=== PATIENT | female | born 1955 | race Caucasian/White ===

== ENCOUNTER 2020-07-20 16:19 | Outpatient (CLI) | payer MEDICARE, SELFPAY ==
--- NOTE | ~2020-07-20 | MM_ITS ---
EXAMINATION: MM screening prosper BI w betsy HISTORY: Screening TECHNIQUE: Craniocaudal and mediolateral oblique 3-D tomosynthesis images were obtained and synthetic 2-D images were generated. CAD analysis was submitted and interpreted. COMPARISON: Comparison to multiple prior studies sequentially, with oldest reviewed study dated 06/11. BREAST PARENCHYMAL COMPOSITION: The breasts are heterogenously dense, which may obscure small masses. FINDINGS: There is no evidence of suspicious mass, calcification, or architectural distortion to sugg est malignancy in either breast. There has been no suspicious interval change. IMPRESSION: 1. No mammographic evidence of malignancy. 2. Recommend routine screening mammography in one year. BI-RADS Category 1: Negative Reviewed, dictated and finalized at location A.
== END 2020-07-20 16:20 | disposition home or self-care (01) ==
LOC: ANHIMG 16:20
PROVIDERS: PCP Internal Medicine; Visit Provider Obstetrics & Gynecology
DX: Z12.31 Encounter for screening mammogram for malignant neoplasm of breast (principal)
CPT/HCPCS: 77063; 77067

== ENCOUNTER 2020-07-21 08:53 | Outpatient (CLI) | payer MEDICARE, SELFPAY ==
--- NOTE | ~2020-07-21 | CT_ITS ---
EXAMINATION: CT abdomen w con DATE: 07/21/2020 09:33 INDICATION: Pancreatic cancer TECHNIQUE: Computed tomography (CT) of the abdomen was performed with 100 mL Omnipaque-350 intravenou s contrast. Automated exposure control and iterative reconstruction technique were employed. The dose -length product was 187.38 mGy-cm. COMPARISON: None FINDINGS: Minimal discoid atelectasis at the left lower lobe. Heart size is normal. No pericardial or pleural e ffusion. There are multiple small low-attenuation lesions scattered throughout the liver with sharply defined margins and with Hounsfield units <20 consistent with hepatic cysts. Gallbladder, spleen, bi lateral adrenal glands and kidneys are normal. Pancreas appears normal with no definitive masses with no ductal dilation or atrophy. Visualized bowels are unremarkable. No pathologically enlarged abdomi nal lymphadenopathy. Moderate to severe lower lumbar spondylosis. IMPRESSION: 1. Multiple hepatic cysts. Liver and pancreas are otherwise unremarkable with no suspicious lesions i dentified. Correlate with clinical history and any prior outside imaging. Reviewed, dictated and finalized at location B. IMPRESSION: 1. Multiple hepatic cysts. Liver and pancreas are otherwise unremarkable with n o suspicious lesions identified. Correlate with clinical history and any prior outside imaging.
[2020-07-21 09:25] LABS: Estimated Glomerular Filt Rate > 60
== END 2020-07-21 08:54 | disposition home or self-care (01) ==
PROVIDERS: PCP Internal Medicine; Visit Provider Internal Medicine
DX: Z80.0 Family history of malignant neoplasm of digestive organs (principal); K76.89 Other specified diseases of liver
CPT/HCPCS: 74160; Q9967

== ENCOUNTER 2021-07-25 09:52 | Outpatient (CLI) | payer MEDICARE, SELFPAY ==
--- NOTE | ~2021-07-25 | MM_ITS ---
EXAMINATION: MM screening prosper BI w betsy HISTORY: Screening mammogram TECHNIQUE: Craniocaudal and mediolateral oblique 3-D tomosynthesis images were obtained and synthetic 2-D images were generated. CAD analysis was submitted and interpreted. COMPARISON: 07/20/2020, 06/15/2019 bilateral digital screening mammogram examinations BREAST PARENCHYMAL COMPOSITION: There are scattered areas of fibroglandular density. FINDINGS: Grouped microcalcifications are noted in the subareolar area of the left breast. Diagnostic left mammogram is recommended, with magnification views. Otherwise there is no evidence of suspicious mass, calcification, or architectural distortion to sugg est malignancy in either breast. There has been no other suspicious interval change. IMPRESSION: 1. Grouped microcalcifications in the subareolar area of left breast 2. Diagnostic left mammogram with magnification views is recommended BI-RADS Category 0: Incomplete: Needs additional imaging evaluation. Reviewed, dictated and finalized at location A.
== END 2021-07-25 09:53 | disposition home or self-care (01) ==
LOC: ANHIMG 09:56
PROVIDERS: PCP Internal Medicine; Visit Provider Obstetrics & Gynecology
DX: Z12.31 Encounter for screening mammogram for malignant neoplasm of breast (principal)
CPT/HCPCS: 77063; 77067

== ENCOUNTER 2021-08-17 11:22 | Outpatient (CLI) | payer MEDICARE, SELFPAY ==
--- NOTE | ~2021-08-17 | MM_ITS ---
EXAMINATION: MM diagnostic mammo unilat LT HISTORY: Follow-up left breast calcifications TECHNIQUE: Additional 3-D tomosynthesis images of the left breast were performed and synthetic 2-D im ages were generated. CAD analysis was submitted and interpreted. COMPARISON: Comparison to multiple prior studies sequentially, with oldest reviewed study dated 06/11. BREAST PARENCHYMAL COMPOSITION: Breast composed of scattered areas of fibroglandular density. FINDINGS: There are clustered indeterminate calcifications in the subareolar location of the left kenny ast with a few of the calcifications layering on the medial lateral view, likely benign. No suspiciou s masses or architectural distortion. IMPRESSION: 1. Probable benign left breast calcifications. 2. Recommend 6 month follow-up diagnostic left mammogram BI-RADS category 3, probably benign findings. Reviewed, dictated and finalized at location A.
== END 2021-08-17 11:23 | disposition home or self-care (01) ==
LOC: ANHIMG 11:24
PROVIDERS: PCP Internal Medicine; Visit Provider Obstetrics & Gynecology
DX: R92.1 Mammographic calcification found on diagnostic imaging of breast (principal)
CPT/HCPCS: 77065

== ENCOUNTER 2022-01-24 11:25 | Outpatient (CLI) | payer MEDICARE, SELFPAY ==
--- NOTE | ~2022-01-24 | MM_ITS ---
EXAMINATION: MM diagnostic prosper LT w betsy HISTORY: Left breast calcifications TECHNIQUE: Additional 3-D tomosynthesis images of the left breast were performed and synthetic 2-D im ages were generated. CAD analysis was submitted and interpreted. COMPARISON: Comparison to multiple prior studies sequentially, with oldest reviewed study dated 06/10. BREAST PARENCHYMAL COMPOSITION: Breast composed of scattered areas of fibroglandular density FINDINGS: Clustered calcifications in the subareolar location of the left breast are unchanged compar ed with prior examination, likely benign. No new masses or architectural distortion. IMPRESSION: 1. Stable likely benign left breast calcifications in the subareolar location. 2. 6 month follow-up diagnostic bilateral mammogram recommended. BI-RADS category 3, probably benign findings. Reviewed, dictated and finalized at location A. 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
== END 2022-01-24 11:26 | disposition home or self-care (01) ==
PROVIDERS: PCP Internal Medicine; Visit Provider Obstetrics & Gynecology
DX: R92.8 Other abnormal and inconclusive findings on diagnostic imaging of breast (principal); R92.1 Mammographic calcification found on diagnostic imaging of breast
CPT/HCPCS: 77061; 77065; G0279

== ENCOUNTER 2022-09-12 15:39 | Outpatient (CLI) | payer MEDICARE, SELFPAY ==
--- NOTE | ~2022-09-12 | MM_ITS ---
EXAMINATION: MM diagnostic prosper BI w betsy HISTORY: Six-month follow-up for probably benign left breast calcifications TECHNIQUE: Craniocaudal, mediolateral, and mediolateral oblique 3-D tomosynthesis images of the breas ts were performed and synthetic 2-D images were generated. Magnification views of the left breast are also obtained. CAD analysis was submitted and interpreted. COMPARISON: 01/24/2022, 08/17/2021, 07/25/2021, 07/20/2020, 06/15/2019 BREAST PARENCHYMAL COMPOSITION: There are scattered areas of fibroglandular density. FINDINGS: There are stable grouped calcifications in the subareolar aspect of the left breast. Many a re round in morphology and some demonstrate a linear configuration on the mediolateral view. No suspi cious mass or architectural distortion are identified in either breast. There has been no suspicious interval change. IMPRESSION: 1. Stable, probably benign left breast calcifications. 2. Given one year of interval stability, recommend 12 month followup bilateral diagnostic mammogram. BI-RADS category 3, probably benign findings. Reviewed, dictated and finalized at location A.
== END 2022-09-12 15:40 | disposition home or self-care (01) ==
PROVIDERS: PCP Internal Medicine; Visit Provider Obstetrics & Gynecology
DX: R92.8 Other abnormal and inconclusive findings on diagnostic imaging of breast (principal)
CPT/HCPCS: 77062; 77066; G0279

== ENCOUNTER 2022-10-15 09:55 | Outpatient (CLI) | payer MEDICARE, SELFPAY ==
--- NOTE | ~2022-10-15 | DEXA_ITS ---
Bone Density Report Name: JIMY CRUM Age: 67 Sex: Female Ethnicity: White Date of : 1955 Indication: postmenopausal; screening for osteoporosis; hysterectomy; Referring Provider: DWIGHT WINKLER Study: Bone densitometry was performed. Exam Date: October 15, 2022 Accession number: [id number] Bone Density: Region BMD T-score Z-score Classification AP Spine(L1-L4) 0.975 -0.7 1.3 Normal Femoral Neck (Left) 0.721 -1.1 0.5 Osteopenia Total Hip (Left) 0.856 -0.7 0.7 Normal Femoral Neck (Right) 0.774 -0.7 1.0 Normal Total Hip (Right) 0.869 -0.6 0.8 Normal Total Hip Mean 0.863 -0.7 0.8 Normal World Health Organization criteria for BMD impression classify patients as: Normal (T-score at or above -1.0), Osteopenia (T-score between -1.0 and -2.5), or Osteoporosis (T-score at or below -2.5). 10-year Fracture Risk(1): Major Osteoporotic Fracture 8.6% Hip Fracture 0.8% Reported Risk Factors: [place] (), Neck BMD=0.721, BMI=24.3 (1) FRAX(R) Version 3.08. Fracture probability calculated for an untreated patient. Fracture probability may be lower if the patient has received treatment. Clinical Information Provided by Patient: Has used the following medications: HRT (i.e. estrogen/hormone therapy), Vitamin D, Calcium Has the following medical conditions: Hysterectomy Patient maximum height was 67 Menopause Age: 49 Onset of menses at age 12 Number of children 0 Impression: The patient has low bone mass, based on the Left Femoral Neck T-score. The patient has an estimated ten-year risk of hip fracture of 0.8% and an estimated ten-year risk of major fracture of 8.6%, based on the WHO FRAX algorithm. Discussion: BONE DENSITY IS LOW AT ONE OR MORE SKELETAL SITES. This patient's lowest T-score is low at one or more skeletal sites. It meets the World Health Organization's (WHO) criteria for ?low bone mass? (T-score between -1.0 and -2.5). The patient's 10-year risk of fracture as calculated by FRAX is less than the threshold where pharmacological therapy is recommended by the National Osteoporosis Foundation (NOF). However, all treatment decisions require clinical judgment and consideration of individual patient factors, including patient preferences, comorbidities, previous drug use, risk factors not captured in the FRAX model (e.g., frailty, falls, vitamin D deficiency, increased bone turnover, interval significant decline in bone density) and possible under or overestimation of fracture risk by FRAX. The patient should follow a healthful lifestyle (good nutrition with adequate calcium and vitamin D, and appropriate weight-bearing exercise). Follow-Up: Consider repeating this study in 2 to 3 years to reassess this patient's status, or sooner if there is some new clini
== END 2022-10-15 09:56 | disposition home or self-care (01) ==
PROVIDERS: PCP Internal Medicine; Visit Provider Obstetrics & Gynecology
DX: Z78.0 Asymptomatic menopausal state (principal); M85.852 Other specified disorders of bone density and structure, left thigh
CPT/HCPCS: 77080

== ENCOUNTER 2023-09-24 11:11 | Outpatient (CLI) | payer MEDICARE, SELFPAY ==
--- NOTE | ~2023-09-24 | MM_ITS ---
EXAMINATION: MM diagnostic prosper BI w betsy HISTORY: Follow-up left breast calcifications TECHNIQUE: Additional 3-D tomosynthesis images of the breasts were performed and synthetic 2-D images were generated. CAD analysis was submitted and interpreted. COMPARISON: Comparison to multiple prior studies sequentially, with oldest reviewed study dated 06/15. BREAST PARENCHYMAL COMPOSITION: Breast composed of scattered areas of fibroglandular density FINDINGS: The breasts are stable. No new masses or architectural distortion in either breast. Cluster ed punctate calcifications in the subareolar location of the left breast are not significantly change d. IMPRESSION: 1. Stable likely benign left breast calcifications. 2. Given one year of interval stability, recommend 12 month followup diagnostic mammogram BI-RADS category 3, probably benign findings. Reviewed, dictated and finalized at location A. 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
== END 2023-09-24 11:12 | disposition home or self-care (01) ==
LOC: ANHIMG 11:12
PROVIDERS: PCP Internal Medicine; Visit Provider Obstetrics & Gynecology
DX: R92.1 Mammographic calcification found on diagnostic imaging of breast (principal); R92.8 Other abnormal and inconclusive findings on diagnostic imaging of breast
CPT/HCPCS: 77062; 77066; G0279

== ENCOUNTER 2024-03-10 07:46 | Outpatient (CLI) | payer MEDICARE, SELFPAY ==
--- NOTE | ~2024-03-10 | CT_ITS ---
EXAMINATION: CT abdomen pelvis wo con DATE: 03/10/2024 08:01 INDICATION: Right lower quadrant abdominal pain TECHNIQUE: Computed tomography (CT) of the abdomen and pelvis was performed without intravenous contr ast. Automated exposure control and iterative reconstruction technique were employed. The dose-length product was 359.57 mGy-cm. COMPARISON: None FINDINGS: Lung bases are clear. Heart size is normal. No pericardial or pleural effusion. Atherosclerotic coron ashanti artery calcifications. Multiple scattered hepatic cysts the largest measuring 1.5 cm in the left hepatic lobe. Gallbladder, spleen, pancreas and bilateral adrenal glands are normal. There is a 1 mm calcification near the outlet of the normal decompressed bladder potentially representing a passing r enal stone. Bilateral kidneys and ureters are normal with no other calcifications suspicious for urol ithiasis and with no hydronephrosis or perinephric/periureteral stranding. The uterus is not identifi ed and has likely been surgically resected. Bowels including the appendix are normal. No free intrape ritoneal gas or fluid. No pathologically enlarged abdominal or pelvic lymphadenopathy. Moderate spond ylosis at the lumbosacral junction. Mild spondylosis in the more cephalad lumbar and lower thoracic s pine. IMPRESSION: 1. 1 mm calcification near the expected vicinity of the urethra, potentially a passing renal stone ve rsus phlebolith or atherosclerotic calcification. No other evident urolithiasis or other acute intra- abdominal/pelvic process. Reviewed, dictated and finalized at location A. IMPRESSION: 1. 1 mm calcification near the expected vicinity of the urethra, potentially a passing renal stone versus phlebolith or atherosclerotic calcification. No othe r evident urolithiasis or other acute intra-abdominal/pelvic process.
== END 2024-03-10 07:47 | disposition home or self-care (01) ==
LOC: ANHIMG 07:48
PROVIDERS: PCP Internal Medicine; Visit Provider Internal Medicine
DX: R10.31 Right lower quadrant pain (principal)
CPT/HCPCS: 74176

== ENCOUNTER 2024-10-09 11:00 | Outpatient (CLI) | payer MEDICARE, SELFPAY ==
--- NOTE | ~2024-10-09 | MM_ITS ---
EXAMINATION: MM diagnostic prosper BI w betsy HISTORY: Follow-up breast calcifications TECHNIQUE: 3-D tomosynthesis images of the breasts were performed and synthetic 2-D images were gener ated. CAD analysis was submitted and interpreted. COMPARISON: 09/24/2023, 09/12/2022, 01/24/2022 BREAST PARENCHYMAL COMPOSITION:Not Dense. There are scattered areas of fibroglandular density. FINDINGS: Parenchymal pattern of both breasts is unchanged. Stable benign group of calcifications in the left breast. No suspicious calcifications. IMPRESSION: No mammographic evidence for malignancy. BI-RADS Category 2: Benign finding(s). Reviewed, dictated and finalized at location M. 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
== END 2024-10-09 11:01 | disposition home or self-care (01) ==
LOC: ANHIMG 11:03
PROVIDERS: PCP Internal Medicine; Visit Provider Obstetrics & Gynecology
DX: R92.8 Other abnormal and inconclusive findings on diagnostic imaging of breast (principal)
CPT/HCPCS: 77062; 77066; G0279

== ENCOUNTER 2025-04-02 00:28 | Day surgery (SDC) | payer MEDICARE, SELFPAY ==
[2025-03-25 13:39] VITALS: BMI 23.6
--- OUTSIDE RECORDS SUMMARY | 2025-04-02 00:34 | XMS_ITS | Encounter Summary ---
Author Organization [facility] Address [address] [place] [address] Care Team Providers Care Soa Engineer Name Role Phone Elmer Chauhan MD Primary Care Provider Elmer Chauhan MD Primary Care Provider Elmer Chauhan MD Primary Care Provider Hortencia Celaya Unavailable [phone] Encounter Details Date Type Department Care Team (Late st Contact Info) Description 12/04/2007 Orders Only [facility] [address] [place] [address] Elmer Chauhan MD [address] [place] [address] [address] [place] [address] Social History Tobacco Use Types Packs/Day Years Used Date Smoking Tobacco: Never Assessed Comments Unknown Sex and Gender Information Value Date Recorded Sex Assigned at Not on file Legal Sex 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 Gender Identity Female 10/09/2021 8:34 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 Sexual Orientation Not on file documented as of this encounter Plan of Treatment Not on file documented as of this encounter Procedures Procedure Name Priority Date/Time Associated Diagnosis Comments COLONOSCOPY Routine 12/04/2007 documented in this encounter Results * Colonoscopy (12/04/2007) Anatomical Region Laterality Modality Other Historical Provider ENDOSCOPY PROCEDURES Stephani l Result documented in this encounter Visit Diagnoses Not on filedocumented in this encounter Additional Health Concerns Infection Onset Date Last Indicated Resolved Time COVID: Suspected 06/08/2020 06/08/2020 06/09/2020 12:37 PM CDT COVID19 06/08/2020 06/08/2020 06/22/2020 3:07 AM CDT COVID: Recovered Comment:Added based on recent COVID infection. 06/22/2020 07/11/2020 10/20/2020 3:[address] COVID: Suspected 04/26/2024 04/26/2024 04/26/2024 10:43 AM CDT COVID19 04/26/2024 04/26/2024 2024 3:05 AM CDT COVID: Recovered Comment:Added based on recent COVID infection. 2024 06/05/2024 08/04/2024 3:07 AM C DT documented as of this encounter Care Teams Soa Engineer Relationship Specialty Start Date End Date Elmer Chauhan MD PCP - General 02/15/17 Elmer Chauhan MD PCP - General 11/27/08 02/14/17 Elmer Chauhan MD PCP - General 12/20/06 11/26/08 Hortencia Celaya PA [address] [place] [address] DR BELLAMY [address] [place] [id number] Physician Microstrategy Developer Orthopedic Surgery 07/08/23 documented as of this encounter
--- OUTSIDE RECORDS SUMMARY | 2025-04-02 00:34 | XMS_ITS | Clinical Summary ---
Author Organization [facility] A Address [address] [place] [address] Care Team Providers Care Car Wrecker Name Role Phone Elmer Chauhan MD Primary Care Provider Hortencia Celaya Unavailable [phone] Allergies No known active allergies Medications estradiol (ESTRACE) 0.5 mg tablet take 1 tablet by oral route every day 0 0 3 Active calcium carbonate-vitamin D3 500 mg(1,250mg) -400 unit tablet Take one by mouth one time per day 0 0 8 Active multivitamin tablet tablet Take one by mouth one time per day 0 0 8 Active C/zinc/Echinacea/p ropol/elderb (SAMBUCUS ELDERBERRY IMMUNE ORAL) Take by mouth Active valACYclovir (VALTREX) 500 mg tablet Take 1 tablet (500 mg total) by mouth as needed Active fluticasone propionate (FLONASE) 50 mcg/actuation nasal spray SHAKE LIQUID AND USE 2 SPRAYS IN EACH NOSTRIL DAILY 16 g 11 4 Active atorvastatin (LIPITOR) 10 mg tablet TAKE 1 TABLET(10 MG) BY MOUTH DAILY 90 tablet 3 5 Active ondansetron ODT (ZOFRAN-ODT) 8 mg disintegrating tabletIndications: Prevention of Post-Operative Nausea and Vomiting Take 1 tablet (8 mg total) by mouth every 8 (eight) hours as needed for nausea or vomiting 12 tablet 1 4 025 Discontin ued(Thera py completed ) Active Problems Problem Noted Date Diagnosed Date Closed fracture of right distal radius 4 Complete tear of right rotator cuff 06/13/2023 Arthritis of right acromioclavicular joint 06/13 Biceps tendinitis on right 06/13/2023 Impingement syndrome of right shoulder 3 Sensorineural hearing loss (SNHL) of both ears 0 03/25/2023 Assessment & Plan (03/25/2023 11:34 AM CDT): Flonase 2 sprays into each nostril while looking down over the sink, do not sniff in or blow nose after use for at least 30 minutes Claritin or Zyrtec daily Hearing test [facility] Seasonal allergic rhinitis due to pollen 023 Assessment & Plan (03/25/2023 11:35 AM CDT): Flonase 2 sprays into each nostril while looking down over the sink, do not sniff in or blow nose after use for at least 30 minutes Claritin or Zyrtec daily Medicare annual wellness visit, subsequent 07/16 History of 2019 novel coronavirus disease (COVID -19) 07/16/2022 Acute pain of right shoulder 10/10/2021 Assessment & Plan (10/10/2021 9:24 AM QUAL FIELD MANAGER): Muscle strain r/o rotator cuff tear Xray showed mild arthritis MRI to evaluate for rotator cuff tear Flexeril for 5 days NSAIDs prn for pain and anti inflammatory cold and hot compress to help with inflammation and muscle relaxing F/u in 1 week If no improvement and pending imaging results will consider referral to ortho Primary osteoarthritis of fi rst carpometacarpal joint of right hand 07/31/2018 Overview (07/31/2018): Added automatically from request for surgery [id number] De Quervain's tenosynovitis 07/31/2018 Overview (07/31/2018): Added automatically from request for surgery [id number] Multiple-type hyperlipidemia 04/03/2014 Overview (02/20/2017): MIXED HYPERLIPIDEMIA Allergic state 04/03/2014 Overview (02/21/2017): ALLERGY, UNSPECIFIED Osteopenia 07/23/2013 Overview (02/21/2017): Osteopenia Resolved Problems Problem Noted Date Diagnosed Date Resolved Date Acute suppurative otitis media 01/04/2015 03/03/2018 Overview (02/22/2017): Acute suppurative otitis media Pneumonia 01/04/2015 03/03/2018 Overview (02/22/2017): Pneumonia Headache 12/29/2014 06/03/2018 Overview (02/22/2017): Headache Cough 12/29/2014 03/03/2018 Overview (02/22/2017): Cough Encounters Date Type Department Care Team Description 03/18/2025 10:30 AM CDT Office Visit [facility] Primary Care at [address] [place] [phone] Elmer Chauhan MD Esophageal stricture (Primary Dx); BMI 24.0-24.9, adult; Multiple-type hyperlipidemia; Right upper quadrant abdominal pain 03/18/2025 Orders Only [facility] Primary Care at [address] [place] [phone] Elmer Chauhan MD Esophageal stricture (Primary Dx) from Last 3 Months Immunizations Immunization Administration Dates Next Due H1N1 All Forms 11/19/2009 Influenza, Quadrivalent, Hig h Dose, Preservative Free, Intrr 08/31/2023,08/20/2022,07/31/2021,08/03 Influenza, Quadrivalent, Spl it, Intramuscular 07/27/2019 Influenza, Quadrivalent, Spl it, Preservative Free, Intradermal 08/07/2016 Influenza, Quadrivalent, Spl it, Preservative Free, Intramuscular 07/27/2019,07/25/2018,08/02/2015 Influenza, Split 08/12/2010 Influenza, Trivalent, IM (MDV) 7,08/03/2015,07/30/2014,08/06,08/19/2012,08/28/2011 Influenza, Trivalent, Preser vative Free, Intramuscular 08/06/2016,06/24/2015 Influenza, Trivalent, Recomb inant, Egg Free, Preservative Free, Antibiotic Free, IM (FLUBLOK) 07/19/2014 Influenza, Unspecified 03/18/2025(Deferr ed: Patient Refused),07/13/2021(Deferred: Patient Refused),07/11/2020(Deferred: Patient Refused) Pfizer SARS-CoV-2 Monovalent Vaccination (12+ Yrs) PURPLE 01/31/2021,01/10/2021 Pneumococcal Conjugate PCV 13 07/11/2020 Pneumococcal Polysaccharide PPV23 07/13/2021 Tdap 12/19/2013,07/11/2009 ZOSTER LIVE 07/31/2013 ZOSTER Recombinant 07/03/2019,04/10/2019 Surgical History Surgery Date Site/Laterality Comments TOTAL ABDOMINAL HYSTERECTOMY W/ BILATERAL SALPINGOOPHORECTOMY 11/18/2005 - 11/17/2006 MERYL BSO TONSILLECTOMY 11/18/1963 - 11/17/1964 Tonsillectomy JOINT REPLACEMENT Right thumb LASIK 2004 THUMB SURGERY Left repair ROTATOR CUFF REPAIR Right Medical History Medical History Date Comments Irritable bowel syndrome Irritab le bowel disease Hx Other Medical menopausal synd sanjuana Hx Other Medical osteopenia Hx Other Medical seasonal allerg ies Hx Other Medical 05/18/2013 thumb surgery-a rthritis; Laterality: left Hx Other Medical moles on back Arthritis Family History Medical History Relation Name Comments Cancer Father Bill Heart disease Father Bill Heart disease; Cause of : Heart disease Kidney failure Father Bill Kidney failur e; Cause of : Kidney failure Heart attack Maternal Grandfather Ramone Cancer Mother Ludy Other Mother Ludy Cancer,Liver; C ause of : Cancer,Liver Pancreatic cancer Mother Ludy Cancer, pa ncreatic; Cause of : Cancer, pancreatic Stroke Mother Ludy COPD Mother's Brother Ed Diabetes Mother's Brother Ed Cancer Other 1 Family history of Cancer; Lung disease Other 2 Family history of lung problems; Osteoarthritis Other 3 Family histor y of Osteoarthritis; Stroke Other 4 Family history of Stroke; Cancer Sister Lorri Relation Name Status Comments Father Hernan Maternal Grandfather Ramone Mother Ludy Mother's Brother Ed Other 1 Other 2 Other 3 Other 4 Sister Lorri Social History Tobacco Use Types Packs/Day Years Used Date Smoking Tobacco: Never Smokeless Tobacco: Never Tobacco Cessation:Counseling Given: Not Answered Alcohol Use Standard Drinks/Week Comments No 0 (1 standard drink = 0.6 oz pur e alcohol) AUDIT-C Answer Date Recorded Q1: How often do you have a drink containing alc ohol? Monthly or less 06/18/2024 Q2: How many drinks containi ng alcohol do you have on a typical day when you are drinking? 1 or 2 06/18/2024 Frequency of Binge Drinking Not on file 11/2023 PHQ-2 Answer Date Recorded PHQ-2 Total Score (If total score is 3 or more points, staff should administer the PHQ-9) 0 03/18/2025 Personal Safety Answer Date Recorded Have you ever been in or are you currently in a harmful physical or emotional relationship or is someone making you feel afraid or unsafe? Denies 06/18/2024 Comments No Sex and Gender Information Value Date Recorded Sex Assigned at Not on file Legal Sex Female 6:00 PM QUAL FIELD MANAGER Gender Identity Female 10/09/2021 8:34 PM QUAL FIELD MANAGER Sexual Orientation Not on file Obstetrics History Last Filed Vital Signs Vital Sign Reading Time Taken Comments Blood Pressure 114/70 03/18/2025 10:23 AM CDT Pulse 75 03/18/2025 10:23 AM CDT Temperature 36.6 C (97.8 F) 03/18/2025 10:23 AM CDT Respiratory Rate 16 03/18/2025 10:23 AM CDT Oxygen Saturation 98% 03/18/2025 10:23 AM CDT Inhaled Oxygen Concentration - - Weight 70.8 kg (156 lb) 03/18/2025 10:23 AM CDT Height 170.2 cm (5' 7 ) 03/18/2025 10:23 AM CDT Body Mass Index 24.43 03/18/2025 10:23 AM CDT Plan of Treatment Health Maintenance Due Date Last Done Comments Hepatitis B Screening 1973 DTaP/Tdap/Td Vaccine (3 - Td or Tdap) 12/19/2023 12/19/2013, 07/11/2009 Covid-19 Vaccine (5 - 2023- 5 season) 2024 08/20/2022, 10/24/2021, 01/31/2021, Additional history exists Influenza Vaccine (Season Ended) 2025 08/31/2023, 08/20/2022, 07/31/2021, Additional history exists Well Visit 65+ 07/21/2025 07/21/2024, 06/20, 07/16/2022, Additional history exists Breast Cancer Screening-Mammogram 10/09/2025 10/09/2024, 09/24/2023, 07/25/2021, Additional history exists Depression Screening 03/18/2026 03/18/2025, 07/21/2024, 02/03/2024, Additional history exists Fall Risk Assessment 03/18/2026 03/18/2025, 07/21/2024, 06/18/2024, Additional history exists Osteoporosis Screening-Bone Density Scan 07/02/2026 07/02/2024, 10/15/2022, 06/04/2019, Additional history exists Colon Cancer Screening-Colonoscopy 12/30/2028 12/30/2018, 12/30/2017, 12/30/2017, Additional history exists Hepatitis C Screening Completed 10/10/2016 Colon Cancer Screening-CT Colonography Discontinued 12/30/2018, 12/30/2017, 12/30/2017, Additional history exists Colon Cancer Screening-DNA Stool Discontinued 12/30/2018, 12/30/2017, 12/30/2017, Additional history exists Colon Cancer Screening-FIT Discontinued 12/30, 12/30/2017, 12/30/2017, Additional history exists Colon Cancer Screening-Sigmoidoscopy Discontinued 12/30/2018, 12/30/2017, 12/30/2017, Additional history exists Zoster Vaccine Completed 07/03/2019, 03/19, 07/31/2013 Pneumococcal vaccine 65+ Completed 07/13/2021, 06/19 Medical Devices Implanted Type Area Feed Crusher Operator Device Identifier Shelf Expiration Date Model / Serial / Lot [employer] Ar-8919ds Tightrope Lena 1.1mm [place] Suture Mini Kit - [id number] Implanted:Qty: 1 on 08/21/2018 by Jim Lawson MD at [facility] Other - see comments Right: Wrist [employer] 05/17/2022 AR-8919DS / / [id number] [employer] Swivelock C 4.75mm 19.1mm Closed Eyelet [place] Suture Ar-2324bcc - [id number] Implanted:Qty: 1 on 07/08/2023 by Jim Lawson MD at [facility] Right: Shoulder [employer] 04/17/2027 AR-2324BC C / / [id number] [employer] Swivelock C 4.75mm 19.1mm Closed Eyelet [place] Suture Ar-2324bcc - [id number] Implanted:Qty: 1 on 07/08/2023 by Jim Lawson MD at [facility] Right: Shoulder [employer] 04/17/2027 AR-2324BC C / / [id number] [employer] Swivelock C 4.75mm 19.1mm Closed Eyelet [place] Suture Ar-2324bcc - [id number] Implanted:Qty: 1 on 07/08/2023 by Jim Lawson MD at [facility] Right: Shoulder [employer] 04/17/2027 AR-2324BC C / / [id number] [employer] Swivelock C 4.75mm 19.1mm Closed Eyelet [place] Suture Ar-2324bcc - [id number] Implanted:Qty: 1 on 07/08/2023 by Jim Lawson MD at [facility] Right: Shoulder [employer] 04/17/2027 AR-2324BC C / / [id number] [employer] Screw Kreulock Compression Titanium 2.4x18mm [id number] - [id number] Implanted:Qty: 2 on 06/18/2024 by Tiana Person MD at [facility] Right: Wrist [employer] AR-8724VC L-18 / / [employer] Screw Kreulock Compression Titanium 2.4x22mm [id number] - [id number] Implanted:Qty: 3 on 06/18/2024 by Tiana Person MD at [facility] Right: Wrist [employer] AR-8724VC L-22 / / [employer] Low Profile Screws 3.5mm 13mm Self Drill Solid Midfoot Cortical T Ar-8935-13 - [id number] Implanted:Qty: 1 on 06/18/2024 by Tiana Person MD at [facility] Right: Wrist [employer] AR-8935-1 3 / / [employer] 3 Hole Anatomic Graft Window Radius Right Wrist Volar Standard [id number] - [id number] Implanted:Qty: 1 on 06/18/2024 by Tiana Person MD at [facility] Right: Wrist [employer] AR-8916VS R-03 / / [employer] Screw Kreulock Compression Titanium 3.5x14mm [id number] - [id number] Implanted:Qty: 1 on 06/18/2024 by Tiana Person MD at [facility] Right: Wrist [employer] AR-8935CL -12 / / [employer] Screw Kreulock Compression Titanium 3.5x14mm [id number] - [id number] Implanted:Qty: 1 on 06/18/2024 by Tiana Person MD at [facility] Right: Wrist [employer] AR-8935CL -14 / / [employer] Screw Kreulock Compression Titanium 2.4x20mm [id number] - [id number] Implanted:Qty: 2 on 06/18/2024 by Tiana Person MD at [facility] Right: Wrist [employer] AR-8724VC L-20 / / Procedures Procedure Name Priority Date/Time Associated Diagnosis Comments DIAGNOSTIC MAMMOGRAM BILATERAL W COLE Schedule Routine, Read Routine (OP Routine) 10/09/2024 DEXA AXIAL SKELETON BONE DENSITY 1 OR MORE SITES Schedule Routine, Read Routine (OP Routine) 07/02/2024 12:36 PM CDT Post-menopause Osteoporosis, unspecified osteoporosis type, unspecified pathological fracture presence HM COLONOSCOPY Routine 12/30/2018 SERUM HEPATITIS C AB Routine 10/10/2016 3:51 AM QUAL FIELD MANAGER from Last 3 Months or Most Recently Relevant to Health Maintenance Results * Diagnostic Mammogram Bilateral W Cole (10/09/2024) Anatomical Region Laterality Modality Breast Bilateral Mammography us Generic External Data Provider IMG MAMMO PROCEDU RES Final Result * Dexa Axial Skeleton Bone Density 1 or 2 Site (07/02/2024 12:36 PM CDT) Anatomical Region Laterality Modality Body N/A Other 07/02/2024 4:27 PM CDT Narrative 07/02/2024 4:29 PM CDT EXAM DESCRIPTION: DEXA AXIAL SKELETON BONE DENSITY 1 OR MORE SITES REASON FOR STUDY: 69 y/o year old F with given history of: Osteoporosis screening screening 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 REFERENCE: Bone mineral density: T-Score: Normal (T-score above or = -1.0) Low bone mass (T-score between -1.0 and -2.5) replaces the previously used term osteopenia Osteoporosis (T-score = or below -2.5) Z-Score: Within the expected range for age (Z-score above -2.0) Below the expected range for age (Z-score is -2.0 or below) Please see below follow up recommendations. Medical evaluation for secondary causes of low bone mineral density may be appropriate. FRAX is a World Health Organization validated fracture risk assessment tool that calculates a person's 10 year probability of a major osteoporosis related fracture and hip fracture. According to the National Osteoporosis Foundation guidelines, postmenopausal women and men age 50 or older with low bone mass and a 10 year probability of a major osteoporosis related fracture = or greater than 20% or a 10 year probability of a hip fracture = or greater than 3% should be considered for pharmacological treatment for the prevention of osteoporosis. For further information, including treatment recommendations, please refer to the 2019 ISCD Official Positions (http://www.iscd.org) and the NOF's Clinician's Guide to Prevention and Treatment of Osteoporosis (http://www.nof.org/professionals/clinical-guidelines) THIS IS AN ELECTRONICALLY VERIFIED FINAL REPORT 07/02/2024 4:29 PM - Electronically signed by Db Vega M.D. MF: AAMIR Report ID: [id number] Reading Location: [place] [address] Procedure Note Db Vega MD - 07/02/2024 EXAM DESCRIPTION: DEXA AXIAL SKELETON BONE DENSITY 1 OR MORE SITES REASON FOR STUDY: 69 y/o year old F with given history of:Osteoporosis screening screening Feed Crusher Operator/Model: [employer] (S/N [id number]) CLINICAL INFORMATION: Current height: 66.3 inches Maximum height: 67 inches Weight: 151 pounds Risk factors: Postmenopausal COMPARISON: None available FINDINGS: AP LUMBAR SPINE L1-L4: Total BMD is 0.980 g/cm2 T-score is -0.6 LEFT HIP: Total BMD is 0.877 g/cm2 T-score is -0.5 Femoral neck BMD is 0.701 g/cm2 T-score is -1.3 FRAX: 10 year risk for a major osteoporotic fracture is 9.3 %, 10 year risk fora hip fracture is 1.1 % IMPRESSION: Low Bone Mass. REFERENCE: Bone mineral density: T-Score: Normal (T-score above or = -1.0) Low bone mass (T-score between -1.0 and -2.5) replaces thepreviously used term osteopenia Osteoporosis (T-score = or below -2.5) Z-Score: Within the expected range for age (Z-score above -2.0) Below the expected range for age (Z-score is -2.0 or below) Please see below follow up recommendations. Medical evaluation forsecondary causes of low bone mineral density may be appropriate. FRAX is a World Health Organization validated fracture risk assessmenttool that calculates a person's 10 year probability of a major osteoporosisrelated fracture and hip fracture. According to the National OsteoporosisFoundation guidelines, postmenopausal women and men age 50 or older with low bonemass and a 10 year probability of a major osteoporosis related fracture = or greater than 20% or a 10 year probability of a hip fracture = or greaterthan 3% should be considered for pharmacological treatment for the preventionof osteoporosis. For further information, including treatment recommendations, please referto the 2019 ISCD Official Positions (http://www.iscd.org) and the NOF's Clinician's Guide to Prevention and Treatment of Osteoporosis (http://www.nof.org/professionals/clinical-guidelines) THIS IS AN ELECTRONICALLY VERIFIED FINAL REPORT 07/02/2024 4:29 PM - Electronically signed by Db Vega M.D. MF: AAMIR Report ID: [id number] Reading Location: [place] [address] Elmer Chauhan MD IMG DXA PROCEDURES Stephani l Result * COLONOSCOPY (12/30/2018) [facility] Colonoscopy Normal Historical Provider HEALTH MAINTENANCE Final Result * Serum Hepatitis C ab (10/10/2016 3:51 AM QUAL FIELD MANAGER) [facility] HCV ab NON-REACTI VE NON-REACTI VE CDR HISTORICAL RESULTS Hepatitis signal to cutoff ratio 0.01 <1.00 CDR HISTORICAL RESULTS Serum 10/10/2016 3:51 AM QUAL FIELD MANAGER Narrative CDR HISTORICAL RESULTS - 10/12/2016 6:00 AM QUAL FIELD MANAGER Test performed at [facility] [id number] [address] [facility] [id number] Director: VALERY STYLES DO,MPH us Historical Provider LAB BLOOD ORDERABLES Stephani escobar Result CDR HISTORICAL RESULTS from Last 3 Months or Most Recently Relevant to Health Maintenance Insurance [facility] MED[facility] ADVANTAGE [facility] Address: [place] [address] UHC MEDICARE ADVANTAGE [facility] Address: [address] [place] [address] UHC MEDICARE ADVANTAGE Care Teams Car Wrecker Relationship Specialty Start Date End Date Elmer Chauhan MD PCP - General 02/15/17 Hortencia Celaya PA [address] [place] [address] DR BELLAMY [address] [place] [id number] Physician Utility System Operator Orthopedic Surgery 07/08/23
--- OUTSIDE RECORDS SUMMARY | 2025-04-02 00:34 | XMS_ITS | Referral Summary ---
Author Organization [facility] A Address [address] [place] [id number] Care Team Providers Care Weir Fisher Name Role Phone Elmer Chauhan MD Primary Care Provider Hortencia Celayahernedra JARAMILLO Unavailable [phone] Encounters Date Type Department Care Team Description 03/18/2025 Orders Only [facility] at [address] [phone] Elmer Chauhan MD Esophageal stricture (Primary Dx) 03/18/2025 10:30 AM CDT Office Visit [facility] at [address] [phone] Elmer Chauhan MD Esophageal stricture (Primary Dx); BMI 24.0-24.9, adult; Multiple-type hyperlipidemia; Right upper quadrant abdominal pain from Last 3 Months Allergies No known active allergies Medications estradiol [...] minutes Claritin or Zyrtec daily Hearing test [facility] Seasonal allergic rhinitis due [...] 10/10/2021 Assessment & Plan (10/10/2021 9:24 AM DISTRICT DIRECTOR): Muscle strain r/o rotator cuff tear Xray [...] (07/31/2018): Added automatically from request for surgery [id number] De Quervain's tenosynovitis 07/31/2018 Overview (07/31/2018): Added automatically from request for surgery [id number] Multiple-type hyperlipidemia 04/03/2014 Overview (02/20/2017): MIXED HYPERLIPIDEMIA Allergic state 04/03/2014 Overview (02/21/2017): ALLERGY, UNSPECIFIED Osteopenia 07/23/2013 Overview (02/21/2017): Osteopenia Resolved Problems Problem Noted Date Diagnosed Date Resolved Date Acute suppurative otitis media 01/04/2015 03/03/2018 Overview (02/22/2017): Acute suppurative otitis media Pneumonia 01/04/2015 03/03/2018 Overview (02/22/2017): Pneumonia Headache 12/29/2014 06/03/2018 Overview (02/22/2017): Headache Cough 12/29/2014 03/03/2018 Overview (02/22/2017): Cough Immunizations Immunization Administration Dates Next Due H1N1 [...] 12/19/2013,07/11/2009 ZOSTER LIVE 07/31/2013 ZOSTER Recombinant 07/03/2019,04/10/2019 Social History Tobacco Use Types Packs/Day Years [...] Frequency of Binge Drinking Not on file 0811/2023 PHQ-2 Answer Date Recorded PHQ-2 Total Score [...] on file Legal Sex Female 6:00 PM DISTRICT DIRECTOR Gender Identity Female 10/09/2021 8:34 PM DISTRICT DIRECTOR Sexual Orientation Not on file Last Filed Vital Signs Vital Sign Reading [...] 03/18/2025 10:23 AM CDT Plan of Treatment Not on file Medical Devices Implanted Type Area Social Psychologist Device Identifier Shelf Expiration Date Model / Serial / Lot [employer] Ar-8919ds Tightrope Lena 1.1mm Button [place] Suture Mini Kit - [id number] Implanted:Qty: 1 on 08/21/2018 by Jim Lawson MD at [facility] Other - see comments Right: Wrist [employer] 05/17/2022 AR-8919DS / / [id number] [employer] Swivelock C 4.75mm 19.1mm Closed Eyelet Vent [place] Suture Ar-2324bcc - [id number] Implanted:Qty: 1 on 07/08/2023 by Jim Lawson MD at [facility] Right: Shoulder [employer] 04/17/2027 AR-2324BC C / / [id number] [employer] Swivelock C 4.75mm 19.1mm Closed Eyelet Vent [place] Suture Ar-2324bcc - [id number] Implanted:Qty: 1 on 07/08/2023 by Jim Lawson MD at [facility] Right: Shoulder [employer] 04/17/2027 AR-2324BC C / / [id number] [employer] Swivelock C 4.75mm 19.1mm Closed Eyelet Vent [place] Suture Ar-2324bcc - [id number] Implanted:Qty: 1 on 07/08/2023 by Jim Lawson MD at [facility] Right: Shoulder [employer] 04/17/2027 AR-2324BC C / / [id number] [employer] Swivelock C 4.75mm 19.1mm Closed Eyelet Vent [place] Suture Ar-2324bcc - [id number] Implanted:Qty: 1 on 07/08/2023 by Jim Lawson MD at [facility] Right: Shoulder [employer] 04/17/2027 AR-2324BC C / / [id number] [employer] Screw Kreulock Compression Titanium 2.4x18mm [id number] - [id number] Implanted:Qty: 2 on 06/18/2024 by Tiana Person MD at [facility] Right: Wrist [employer] AR-8724VC L-18 / / [employer] Screw Kreulock Compression Titanium 2.4x22mm [id number] - [id number] Implanted:Qty: 3 on 06/18/2024 by Tiana Person MD at [facility] Right: Wrist [employer] AR-8724VC L-22 / / [employer] Low Profile Screws 3.5mm 13mm Self Drill Solid Midfoot Cortical T Ar-8935-13 - [id number] Implanted:Qty: 1 on 06/18/2024 by Tiana Person MD at [facility] Right: Wrist [employer] AR-8935-1 3 / / [employer] 3 Hole Anatomic Graft Window Radius Right Wrist Volar Standard [id number] - [id number] Implanted:Qty: 1 on 06/18/2024 by Tiana Person MD at [facility] Right: Wrist [employer] AR-8916VS R-03 / / [employer] Screw Kreulock Compression Titanium 3.5x14mm [id number] - [id number] Implanted:Qty: 1 on 06/18/2024 by Tiana Person MD at [facility] Right: Wrist [employer] AR-8935CL -12 / / [employer] Screw Kreulock Compression Titanium 3.5x14mm [id number] - [id number] Implanted:Qty: 1 on 06/18/2024 by Tiana Person MD at [facility] Right: Wrist [employer] AR-8935CL -14 / / [employer] Screw Kreulock Compression Titanium 2.4x20mm [id number] - [id number] Implanted:Qty: 2 on 06/18/2024 by Tiana Person MD at [facility] Right: Wrist [employer] AR-8724VC L-20 / [...] HEPATITIS C AB Routine 10/10/2016 3:51 AM DISTRICT DIRECTOR from Last 3 Months or Most Recently Relevant to Health Maintenance Results * Diagnostic Mammogram Bilateral W Cole (10/09/2024) Anatomical Region Laterality Modality Breast Bilateral Mammography Generic External Data Provider IMG MAMMO PROCEDU [...] with given history of: Osteoporosis screening screening Social Psychologist/Model: [employer] (S/N 30902) CLINICAL INFORMATION: Current height: 66.3 inches Maximum [...] Db Vega M.D. MF: AAMIR Report ID: [id number] Reading Location: [id number] [facility] Note Db Vega MD - 07/02/2024 EXAM DESCRIPTION: DEXA AXIAL SKELETON BONE DENSITY 1 OR MORE SITES REASON FOR STUDY: 69 y/o year old F with given history of:Osteoporosis screening screening Social Psychologist/Model: [employer] (S/N 84228) CLINICAL INFORMATION: Current height: 66.3 inches Maximum [...] Db Vega M.D. MF: AAMIR Report ID: [id number] Reading Location: [id number] Elmer Chauhan MD IMG DXA PROCEDURES Stephani l Result * COLONOSCOPY (12/30/2018) Pathologist [facility] Colonoscopy Normal Historical Provider HEALTH MAINTENANCE Final Result * Serum Hepatitis C ab (10/10/2016 3:51 AM DISTRICT DIRECTOR) Pathologist [facility] HCV ab NON-REACTI VE NON-REACTI VE CDR HISTORICAL RESULTS Hepatitis signal to cutoff ratio 0.01 <1.00 CDR HISTORICAL RESULTS Serum 10/10/2016 3:51 AM DISTRICT DIRECTOR Narrative CDR HISTORICAL RESULTS - 10/12/2016 6:00 AM DISTRICT DIRECTOR Test performed at [facility] [id number] Director: VALERY STYLES DO,MPH Historical Provider LAB BLOOD ORDERABLES Stephani l Result Performing Organization Address City/State/[place] Co de Phone Number CDR HISTORICAL RESULTS from Last 3 Months or Most Recently Relevant to Health Maintenance Insurance [facility] MEDICARE ADVANTAGE [facility] MEDICARE ADVANTAGE [facility] MEDICARE ADVANTAGE Care Teams Weir Fisher Relationship Specialty Start Date End Date Elmer Chauhan MD PCP - General 02/15/17 Hortencia Celaya PA [address] [place] [address] [place] [address] Physician Stem Assembler Orthopedic Surgery 07/08/23
[2025-04-02 12:29] VITALS: BP 130/66; PULSE 70; RESP 16; TEMP 36.4; O2SAT 99; BMI 24.0
[2025-04-02] MEDS: LACTATED RINGERS 1,000 ML 150 ML IV CONT (12:39)
--- NOTE | 2025-04-02 12:41 | WPDANESEPPF ---
Anes - Initial Pre Proc Eval Procedure: Operation Date: 04/02/25 13:30 Proposed Procedures p Esophagogastroduodenoscopy - Feliciano Hamilton MD Date/Time: 04/02/25 12:41 Surgeon: Feliciano Hamilton MD Pre Op Diagnosis: Esophageal obstruction Patient Data Age: 69 Gender: F Height: 1.7 m Weight: 69.5 kg Last Vital Signs Temp 36.4 C 04/02/25 12:29 Pulse 70 04/02/25 12:29 Resp 16 04/02/25 12:29 BP 130/66 04/02/25 12:29 Pulse Ox 99 04/02/25 12:29 O2 Del Method Room Air 04/02/25 12:29 Allergies Allergy/AdvReac Type Severity Reaction Status Date / Time No Known Allergies Allergy Verified 04/02/25 12:26 Home Medications Medication Instructions Recorded Confirmed Type atorvastatin 10 mg tablet 10 mg PO DAILY 06/24/20 04/02/25 History calcium 600 mg (as carbonate)-vit 1 tablet PO DAILY 06/24/20 04/02/25 History D3 20 mcg (800 unit) chewable tablet (Caltrate plus D) fluticasone propionate 50 1 spray intranasal BID 06/24/20 03/30/25 History mcg/actuation nasal spray,suspension (Flonase Allergy Relief) multivitamin (Daily Multi-Vitamin 1 tablet PO DAILY 06/24/20 04/02/25 History tablet) valacyclovir 500 mg tablet 500 mg PO DAILY PRN cold sores 06/24/20 03/30/25 History (Valtrex) elderberry fruit 200 mg capsule 200 mg PO DAILY 07/19/22 04/02/25 History estradiol 0.5 mg tablet 0.5 mg PO DAILY #90 tabs 11/10/24 04/02/25 Rx Patient hx anesthesia problems: none Family hx anesthesia problems: none Results Review: All pre-operative results and documents have been reviewed as part of the pre-operative evaluation. [facility] Past Medical History Medical History HSV (herpes simplex virus) infection High cholesterol Surgical History Surgical History History of hand surgery thumb surgery on both hands History of tonsillectomy and adenoidectomy History of total hysterectomy 2003 Family History Family History Mother Cerebrovascular accident Pancreatic cancer Liver cancer Social History Social History Smoking status: Never smoker Alcohol intake: current Drinks per week: 1 Substance use: never Substance use type: does not use Anes - Eval Final PreProcedure Day of Procedure 04/02/25 12:41 Patient weight: normal Heart: regular rate and rhythm Lungs: clear to auscultation Airway: Mallampati scale class II Neurological: alert and oriented Last oral intake: >/= 8 hours ASA classification: II Emergent: no Anesthetic plan: proceed Anesthesia type and monitoring: general GIVS and standard monitoring Results Review: All pre-operative results and documents have been reviewed as part of the pre-operative evaluation. Informed Consent: The patient's anesthetic plan and its attendant risks and benefits were discussed with the patient/family/POA. Questions were solicited and answers provided to the satisfaction of the patient/family/POA.
--- NOTE | 2025-04-02 13:35 | PM.HPGS ---
History of Present Illness History of Present Illness Consent: Risks, benefits, and alternatives have been discussed and questions answered. Patient agrees to proceed with procedure. Chief complaint: dysphagia Narrative: Shelly Chne is a 69 year old female here for first EGD, last few months dysphagia to solids Review of Systems Review of Systems: All systems reviewed & are unremarkable except as noted in HPI and below PMFSH Past Medical History Medical History (Updated 04/02/25 @ 13:36 by Feliciano Hamilton MD) Dysphagia HSV (herpes simplex virus) infection High cholesterol Surgical History Surgical History History of hand surgery thumb surgery on both hands History of tonsillectomy and adenoidectomy History of total hysterectomy 2003 Family History Family History Mother Cerebrovascular accident Pancreatic cancer Liver cancer Social History Social History Smoking status: Never smoker Alcohol intake: current Drinks per week: 1 Substance use: never Substance use type: does not use Meds Home Medications and Allergies Home Medications Medication Instructions Recorded Confirmed Type atorvastatin 10 mg tablet 10 mg PO DAILY 06/24/20 04/02/25 History calcium 600 mg (as carbonate)-vit 1 tablet PO DAILY 06/24/20 04/02/25 History D3 20 mcg (800 unit) chewable tablet (Caltrate plus D) fluticasone propionate 50 1 spray intranasal BID 06/24/20 03/30/25 History mcg/actuation nasal spray,suspension (Flonase Allergy Relief) multivitamin (Daily Multi-Vitamin 1 tablet PO DAILY 06/24/20 04/02/25 History tablet) valacyclovir 500 mg tablet 500 mg PO DAILY PRN cold sores 06/24/20 03/30/25 History (Valtrex) elderberry fruit 200 mg capsule 200 mg PO DAILY 07/19/22 04/02/25 History estradiol 0.5 mg tablet 0.5 mg PO DAILY #90 tabs 11/10/24 04/02/25 Rx Allergies Allergy/AdvReac Type Severity Reaction Status Date / Time No Known Allergies Allergy Verified 04/02/25 12:26 Vital Signs Vital Signs - 24 hr 04/02/25 12:29 Temperature 97.6 F Pulse Rate 70 Respiratory Rate 16 Blood Pressure 130/66 Pulse Oximetry 99 Oxygen Delivery Room Air Exam Const: General: comfortable and no acute distress HENMT: Face/Nose/Sinus: Normal nares present Eyes: General: appearance normal, both eyes and all related structures Neck: Neck: no JVD Resp: Auscultation: clear to auscultation bilaterally Cardio: Rate: regular rate Rhythm: regular rhythm GI: Inspection: non-distended GI Palp: Yes Soft to palpation Skin: General skin exam: normal color Neuro: General: gait normal Speech: normal speech Extrem: General: normal to inspection Psych: Mental Status: mental status grossly normal Assessment and Plan Assessment and plan (1) Dysphagia: Code(s): R13.10 - Dysphagia, unspecified Status: Acute Assessment and Plan: egd
[2025-04-02 13:50] VITALS: BP 116/55; PULSE 85; RESP 14; O2SAT 98
[2025-04-02 14:00] VITALS: BP 123/47; PULSE 86; RESP 16; O2SAT 99
[2025-04-02 14:10] VITALS: BP 106/50; PULSE 67; RESP 22; O2SAT 100
== END 2025-04-02 14:18 | disposition home or self-care (01) ==
PROVIDERS: PCP Internal Medicine; Referring Provider Internal Medicine; Visit Provider Internal Medicine Gastroenterology
PROC: 0DJ08ZZ Inspection of Upper Intestinal Tract, Via Natural or Artificial Opening Endoscopic (ICD-10-PCS; CPT 43249; principal; 2025-04-02 13:30)
DX: K22.2 Esophageal obstruction (principal); E78.00 Pure hypercholesterolemia, unspecified; Z98.890 Other specified postprocedural states; Z80.0 Family history of malignant neoplasm of digestive organs; Z82.49 Family history of ischemic heart disease and other diseases of the circulatory system
CPT/HCPCS: 43249; 88305; C1726; J2704; J7120